=== PATIENT | male | born 1985 | race Caucasian/White ===

== ENCOUNTER 2022-06-17 17:44 | Emergency (ER) | payer OTHER ==
--- OUTSIDE RECORDS SUMMARY | 2022-06-17 17:58 | EXTERNAL MEDICAL SUMMARY RPT | Continuity of Care Document ---
:1985 Author Organization [facility] Address [address] [place] [address] Phone Allergies and Intolerances date description facility type (no date) [facility] (unknown) Encounters No information. Functional Status No information. Immunizations No information. Medications No information. Problems No information. Procedures No information. Results/Labs test date author facility value unit interpret ation Result panel 1 (unknown) (no date) (unknown) (unknown) (no value) (units (un known) unknown) (unknown) (no date) (unknown) (unknown) [id number] (units (unkn own) unknown) (unknown) (no date) (unknown) (unknown) 05/02/22 (units (unkn own) unknown) (unknown) (no date) (unknown) (unknown) [address] (units (unk nown) [address] unknown) (unknown) (no date) (unknown) (unknown) Accession (units (unk nown) Number: unknown) [id number] (unknown) (no date) (unknown) (unknown) Age/Sex: 36 / (units (unknown) M Date of unknown) Service: (unknown) (no date) (unknown) (unknown) [place] [address] unknown) (unknown) (no date) (unknown) (unknown) Approved by: (units ( unknown) Shayne unknownShahnaz Membreno M.D. on 05/02/2022 at 21:00 (unknown) (no date) (unknown) (unknown) Bones: (units (unkn own) Comminuted unknown) distal radius fracture with articular surface involvement (unknown) (no date) (unknown) (unknown) COMPARISON: (units (u nknown) None. unknown) (unknown) (no date) (unknown) (unknown) : (units (unkn own) 1985 unknown) Acct:[id number] (unknown) (no date) (unknown) (unknown) Dictated by: (units ( unknown) Shayne unknown) Niurka Membreno on 05/02/2022 at 20:58 (unknown) (no date) (unknown) (unknown) FINDINGS: (units (unk nown) unknown) (unknown) (no date) (unknown) (unknown) IMPRESSION: (units (u nknown) Distal radius unknown) fracture in a sugar-tong splint with dorsal (unknown) (no date) (unknown) (unknown) INDICATIONS: (units ( unknown) radial/ulnar unknown) fractures, daughter pulled on hand (unknown) (no date) (unknown) (unknown) [facility] (unknown) (no date) (unknown) (unknown) Loc: ED (units (unkn own) unknown) (unknown) (no date) (unknown) (unknown) Ordering (units (unkn own) Provider: unknown) Ray Loo D.O. (unknown) (no date) (unknown) (unknown) PROCEDURE: XR (units (unknown) WRIST LT MIN 3V unknown) (unknown) (no date) (unknown) (unknown) Patient: (units (unkn own) Mihir Flores unknown) MR#: [id number] (unknown) (no date) (unknown) (unknown) Procedure: XR (units (unknown) wrist LT min 3V unknown) (unknown) (no date) (unknown) (unknown) Signed (units (unkn own) unknown) (unknown) (no date) (unknown) (unknown) Soft tissues: (units (unknown) No suspicious unknown) soft tissue calcifications. (unknown) (no date) (unknown) (unknown) TECHNIQUE: 4. (units (unknown) views of the unknown) wrist were acquired. (unknown) (no date) (unknown) (unknown) XRay Report (units (u nknown) unknown) (unknown) (no date) (unknown) (unknown) and dorsal (units (un known) unknown) (unknown) (no date) (unknown) (unknown) angulation (units (un known) unknown) (unknown) (no date) (unknown) (unknown) angulation. (units (u nknown) unknown) Social History No information. Vital Signs No information.
[2022-06-17 18:09] VITALS: BP 129/92
--- NOTE | 2022-06-17 19:11 | XRAY Report ---
PROCEDURE: Wrist 4 View LT INDICATIONS: Trauma TECHNIQUE: 4 views of the wrist were acquired. COMPARISON: Left wrist radiographs 04/17/2022. FINDINGS: Bones: Casting material obscures fine bony detail. Distal radius fracture with sclerosis. No dislocat ions. Alignment is similar. No suspicious bony lesions. Scaphoid view: Intact. Soft tissues: No suspicious soft tissue calcifications. IMPRESSION: The distal radius fracture demonstrates similar alignment. There is incomplete osseous union. Reviewed by: Al Driscoll MD on 06/17/2022 7:10 PM PDT Approved by: Al Driscoll MD on 06/17/2022 7:10 PM PDT Station ID: [id number]
== END 2022-06-17 18:44 | disposition left against medical advice (07) ==
LOC: ED 17:44
DX: Z53.21 Procedure and treatment not carried out due to patient leaving prior to being seen by health care provider (principal)

== ENCOUNTER 2023-07-18 18:30 | Emergency (ER) | payer OTHER ==
[2023-07-18 18:47] VITALS: BP 125/68; O2SAT 94
--- NOTE | 2023-07-18 19:32 | ED Physician Documentation ---
PD HPI URI - Stated complaint Stated Complaint: EAR PX/CONGESTION - Chief complaint Chief Complaint: Heent - History obtained from History obtained from: Patient - Additional information Additional information: 38-year-old male presents with several days of cough, nasal congestion, ear fullness and mild ear pain, scratchy sore throat, he feels a little bit dizzy. He has not had a fever to his knowledge. Has not taken any medication including Tylenol ibuprofen or gkik-hbp-ygoxzrb cough cold medications. He has not had any respiratory distress, no chest pain, no GI or symptoms. He has a number of young children at home some of whom have had colds recently and he is also concerned about making his other children sick. PD PAST MEDICAL HISTORY - Past Medical History Past Medical History: No - Past Surgical History Past Surgical History: No - Present Medications Home Medications: Ambulatory Orders Medication Instructions Recorded Confirmed predniSONE [Deltasone] 40 mg PO DAILY 5 Days #10 tablet 07/18/23 - Allergies Allergies/Adverse Reactions: Allergies Allergy/AdvReac Type Severity Reaction Status Date / Time Penicillins Allergy Anaphylaxis Verified 07/18/23 18:37 - Social History Does the pt smoke?: No Smoking Status: Never smoker Does the pt drink ETOH?: Yes Does the pt have substance abuse?: No - Immunizations Immunizations are current?: Yes - POLST Patient has POLST: No PD ED PE NORMAL - Vitals Vital signs reviewed: Yes - General General: Alert and oriented X 3, No acute distress, Well developed/nourished - HEENT HEENT: Atraumatic, Ears normal, Moist mucous membranes, Pharynx benign, Dentition benign - Neck Neck: Supple, no meningeal sign, No adenopathy - Cardiac Cardiac: RRR, No murmur - Respiratory Respiratory: No respiratory distress, Clear bilaterally - Abdomen Abdomen: Normal bowel sounds, Soft, Non tender, Non distended - Derm Derm: Normal color, Warm and dry, No rash Results - Vitals Vitals: Vital Signs - 24 hr 07/18/23 18:37 Temperature 37.2 C Heart Rate 88 Respiratory 16 Rate Blood Pressure 125/68 O2 Saturation 94 Oxygen O2 Source Room air - Labs Labs: Laboratory Tests 07/18/23 19:35 Group A Strep Rapid Negative PD Medical Decision Making - ED course Complexity details: reviewed results, re-evaluated patient, considered differential, d/w patient ED course: This is a 38-year-old male who presents with nasal congestion scratchy throat, dizziness, ear fullness. He is very well-appearing on physical exam, and there are no acute physical exam findings, he is nontoxic and vitals are stable. Requested strep test which was negative, and we did a viral panel which is pending. Patient is adamant that he needs steroids stating that vcci-ida-cldxhfp cold medication or decongestants will not do anything, though he has not tried any Tylenol ibuprofen or decongestants. He then states that he was around his ygbqjd-dm-nee recently who had similar symptoms, then "lost 30% of his hearing and developed a cochlear infection and they do not know why." And he is concerned that that will happen to him. His vgvibt-zy-ohj received steroids and he would like to have steroids for this issue. I discussed with patient that steroids typically are not the first-line treatment for viral URI symptoms such as his, and I suspect that his father may have had a mastoiditis but in any case, after extensive discussion of the risk versus benefits of this, I have given him 40 mg of prednisone daily for the next 5 days though patient was cautioned extensively on the potential risks of this medication. I encouraged supportive measures for likely viral illness but if symptoms do not improve or worsen, return precautions reviewed. Departure - Departure Disposition: 01 Home, Self Care Clinical Impression: Upper respiratory infection, viral Condition: Good Instructions: ED Viral Syndrome Prescriptions: predniSONE [Deltasone] 40 mg PO DAILY 5 Days #10 tablet Comments: The viral panel is still pending. Please check your online chart for results or call for results. Treatment for a viral upper respiratory infection is supportive including Tylenol or ibuprofen as needed, hyzg-egd-pmtdvtz decongestions, plenty of rest, oral fluids. You are likely to be more fatigued than normal and will need additional sleep. Symptoms do resolve on their own usually after about 7 to 10 days. If you have worsening symptoms during this time, please see your primary doctor or return to the ER. Forms: PCP List
[2023-07-18 20:16] LABS: RAPID STREP SCREEN Negative (Negative)
[2023-07-18 21:05] LABS: B. PARAPERTUSSIS- RESP PCR PAN NOT DETECTED; B. PERTUSSIS- RESP PCR PANEL NOT DETECTED; C. PNEUMONIAE- RESP PCR PANEL NOT DETECTED; CORONAVIRUS 229E-RESP PCR NOT DETECTED; CORONAVIRUS HKU1-RESP PCR NOT DETECTED; CORONAVIRUS NL63-RESP PCR NOT DETECTED; CORONAVIRUS OC43-RESP PCR NOT DETECTED; HUMAN METAPNEUMOVIRUS NOT DETECTED; INFLUENZA A- RESP PCR PANEL NOT DETECTED; INFLUENZA B - RESP PCR PANEL NOT DETECTED; M. PNEUMONIAE- RESP PCR PANEL NOT DETECTED; PARAINFLUENZA VIRUS 1 NOT DETECTED; PARAINFLUENZA VIRUS 2 NOT DETECTED; PARAINFLUENZA VIRUS 3 NOT DETECTED; PARAINFLUENZA VIRUS 4 NOT DETECTED; RHINOVIRUS/ENTEROVIRUS DETECTED; RSV- RESP PCR PANEL NOT DETECTED; SARS-CoV-2 -RESP PCR PANEL NOT DETECTED
== END 2023-07-18 20:47 | disposition home or self-care (01) ==
LOC: ED 18:30
DX: J06.9 Acute upper respiratory infection, unspecified (principal); Z20.822 Contact with and (suspected) exposure to COVID-19
CPT/HCPCS: 87070; 87430; 87633; 99283

== ENCOUNTER 2023-08-13 12:15 | Emergency (ER) | payer OTHER ==
--- NOTE | 2023-08-13 12:32 | ED Physician Documentation ---
History of Present Illness - Stated complaint Stated Complaint: NECK/EAR/PX - Chief complaint Chief Complaint: Heent - History obtained from History obtained from: Patient - Additonal information Additional information: Otherwise healthy 38-year-old gentleman has been sick for a month. He was seen by my partner in mid July and noted to be enterovirus/rhinovirus positive and started on steroids which helpful for a time. Now has persistent left earache, throat pain, and sinus pain. No fevers. PD PAST MEDICAL HISTORY - Past Medical History Past Medical History: No - Past Surgical History Past Surgical History: No - Present Medications Home Medications: Ambulatory Orders Medication Instructions Recorded Confirmed Doxycycline [Vibramycin] 100 mg PO BID #14 tablet 08/13/23 Guaifenesin/Pseudoephedrne HCl 1 each PO BID PRN #20 tab 08/13/23 [Mucinex D ER 600-60 mg Tablet] predniSONE [Deltasone] 40 mg PO DAILY 5 Days #10 tablet 08/13/23 - Allergies Allergies/Adverse Reactions: Allergies Allergy/AdvReac Type Severity Reaction Status Date / Time Penicillins Allergy Anaphylaxis Verified 08/13/23 12:23 - Social History Does the pt smoke?: No Smoking Status: Never smoker Does the pt drink ETOH?: Yes Does the pt have substance abuse?: No - Immunizations Immunizations are current?: Yes - POLST Patient has POLST: No PD ED PE NORMAL - Vitals Vital signs reviewed: Yes - General General: Alert and oriented X 3, No acute distress - HEENT HEENT: Other (Tender over the left maxillary sinus. Mild left otitis. Oropharynx normal. Supple neck.) - Neck Neck: Supple, no meningeal sign, No bony TTP - Neuro Neuro: Alert and oriented X 3 Results - Vitals Vitals: Vital Signs - 24 hr 08/13/23 12:19 Temperature 36.9 C Heart Rate 72 Respiratory 16 Rate Blood Pressure 119/69 O2 Saturation 97 Oxygen O2 Source Room air PD Medical Decision Making - ED course ED course: Note for MIPS review doxycycline was chosen noting penicillin allergy and therefore not amoxicillin or Augmentin. Departure - Departure Disposition: 01 Home, Self Care Clinical Impression: Sinusitis Qualifiers: Sinusitis location: maxillary Chronicity: acute Recurrence: non-recurrent Qualified Code(s): J01.00 - Acute maxillary sinusitis, unspecified Condition: Good Record reviewed to determine appropriate education?: Yes Instructions: ED Sinusitis Abx Tx Prescriptions: predniSONE [Deltasone] 40 mg PO DAILY 5 Days #10 tablet Guaifenesin/Pseudoephedrne HCl [Mucinex D ER 600-60 mg Tablet] 1 each PO BID PRN #20 tab PRN Reason: congestion Doxycycline [Vibramycin] 100 mg PO BID #14 tablet Comments: I sent your prescriptions [facility] to [facility] in [place]. Drink plenty of fluids. Follow-up with your doctor in a week if not better, return for new or worsening symptoms. Forms: PCP List
[2023-08-13 12:39] VITALS: BP 120/95; O2SAT 98
== END 2023-08-13 12:55 | disposition home or self-care (01) ==
LOC: ED 12:15
DX: J01.00 Acute maxillary sinusitis, unspecified (principal); Z88.0 Allergy status to penicillin
CPT/HCPCS: 99283

== ENCOUNTER 2023-08-20 13:47 | Emergency (ER) | payer OTHER ==
[2023-08-20 15:32] LABS: RAPID STREP SCREEN Negative (Negative)
--- NOTE | 2023-08-20 15:57 | XRAY Report ---
PROCEDURE: Ankle 3 View RT INDICATIONS: pain TECHNIQUE: 3 views of the ankle were acquired. COMPARISON: None. FINDINGS: Bones: No acute fractures or dislocations. Chronic appearing ossification noted over the distal asp ect of the right fibula. Ankle mortise is normally aligned. No suspicious bony lesions. Soft tissues: No tibiotalar joint effusion. Achilles tendon appears normal. Moderate lateral malle olar soft tissue swelling. IMPRESSION: Moderate lateral malleolar soft tissue swelling without underlying acute fracture or dislocation. Chronic appearing ossification over the distal right fibula likely sequela of remote injury. If there is persistent clinical concern for a radiographically occult fracture, recommend immobilizat ion and repeat imaging in 10 to 14 days. Reviewed by: Darek Ramirez MD on 08/20/2023 3:56 PM PST Approved by: Darek Ramirez MD on 08/20/2023 3:56 PM [facility] Station ID: [id number]
--- NOTE | 2023-08-20 15:58 | XRAY Report ---
PROCEDURE: Chest 1 View X-Ray INDICATIONS: cough TECHNIQUE: One view of the chest was acquired. COMPARISON: None. FINDINGS: Surgical changes and devices: Postsurgical changes of the right shoulder.. Lungs and pleura: No pleural effusions or pneumothorax. Lungs are clear. Mediastinum: Mediastinal contours appear normal. Heart size is normal. Bones and chest wall: No suspicious bony lesions. Overlying soft tissues appear unremarkable. IMPRESSION: No acute cardiopulmonary process. No focal consolidation. Reviewed by: Darek Ramirez MD on 08/20/2023 3:57 PM PST Approved by: Darek Ramirez MD on 08/20/2023 3:57 PM PST Station ID: [id number]
[2023-08-20 16:10] LABS: B. PARAPERTUSSIS- RESP PCR PAN NOT DETECTED; B. PERTUSSIS- RESP PCR PANEL NOT DETECTED; C. PNEUMONIAE- RESP PCR PANEL NOT DETECTED; CORONAVIRUS 229E-RESP PCR NOT DETECTED; CORONAVIRUS HKU1-RESP PCR NOT DETECTED; CORONAVIRUS NL63-RESP PCR NOT DETECTED; CORONAVIRUS OC43-RESP PCR NOT DETECTED; HUMAN METAPNEUMOVIRUS NOT DETECTED; INFLUENZA A- RESP PCR PANEL NOT DETECTED; INFLUENZA B - RESP PCR PANEL NOT DETECTED; M. PNEUMONIAE- RESP PCR PANEL NOT DETECTED; PARAINFLUENZA VIRUS 1 NOT DETECTED; PARAINFLUENZA VIRUS 2 NOT DETECTED; PARAINFLUENZA VIRUS 3 NOT DETECTED; PARAINFLUENZA VIRUS 4 NOT DETECTED; RHINOVIRUS/ENTEROVIRUS NOT DETECTED; RSV- RESP PCR PANEL NOT DETECTED; SARS-CoV-2 -RESP PCR PANEL NOT DETECTED
--- NOTE | 2023-08-20 16:17 | ED Physician Documentation ---
PD HPI URI - Stated complaint Stated Complaint: ARMIN CONTRERAS - Chief complaint Chief Complaint: General - History obtained from History obtained from: Patient - Additional information Additional information: Patient is a 38-year-old male presenting for evaluation of URI symptoms for the past 3 days with cough, congestion, plugged up ears. He was recently seen here and diagnosed with ear infections and given doxycycline as well as prednisone. He only took prednisone for a few days Because it was making him to report to complete the course of antibiotics. His doctor here with similar symptoms. Patient reports still feeling some congestion. He also is here for evaluation of right ankle pain after stepping in a pothole on the . He has been able to ambulate but reports mild discomfort and states that this is the actual reason he came to the emergency department today. Denies fever. No head injury. Review of Systems Constitutional: denies: Fever Ears: reports: Ear pain Nose: reports: Congestion Respiratory: reports: Cough GI: denies: Vomiting Musculoskeletal: reports: Extremity swelling PD PAST MEDICAL HISTORY - Past Medical History Past Medical History: No Cardiovascular: None Respiratory: None Neuro: None Endocrine/Autoimmune: None GI: None : None HEENT: None Psych: None Musculoskeletal: None Derm: None - Past Surgical History Past Surgical History: No - Present Medications Home Medications: Ambulatory Orders Medication Instructions Recorded Confirmed Doxycycline [Vibramycin] 100 mg PO BID #14 tablet 08/13/23 Guaifenesin/Pseudoephedrne HCl 1 each PO BID PRN #20 tab 08/13/23 [Mucinex D ER 600-60 mg Tablet] predniSONE [Deltasone] 40 mg PO DAILY 5 Days #10 tablet 08/13/23 Fluticasone [Flonase] 1 sprays NAZIA BID PRN #16 gm 08/20/23 - Allergies Allergies/Adverse Reactions: Allergies Allergy/AdvReac Type Severity Reaction Status Date / Time Penicillins Allergy Anaphylaxis Verified 08/20/23 13:56 - Social History Does the pt smoke?: No Smoking Status: Never smoker Does the pt drink ETOH?: Yes Does the pt have substance abuse?: No - Immunizations Immunizations are current?: Yes - POLST Patient has POLST: No PD ED PE NORMAL - General General: Alert and oriented X 3, No acute distress, Well developed/nourished - HEENT HEENT: Atraumatic, Ears normal (B/L serous otitis), Moist mucous membranes, Pharynx benign - Neck Neck: Supple, no meningeal sign - Cardiac Cardiac: RRR - Respiratory Respiratory: No respiratory distress, Clear bilaterally - Abdomen Abdomen: Soft, Non tender, Non distended - Derm Derm: Warm and dry - Extremities Extremities: No deformity, Other (Mild tenderness to right lateral malleoli; Distal pulses intact, compartments of extremity are soft) - Neuro Neuro: Normal speech Results - Vitals Vitals: Vital Signs - 24 hr 08/20/23 08/20/23 13:56 16:47 Temperature 36.7 C Heart Rate 74 64 Respiratory 18 16 Rate Blood Pressure 119/66 112/74 O2 Saturation 97 99 Oxygen O2 Source Room air - Labs Labs: Laboratory Tests 08/20/23 08/20/23 15:10 15:10 Nasal Adenovirus (PCR) NOT DETECTED Nasal B. parapertussis DNA (PCR) NOT DETECTED Nasal Coronavir 229E PCR NOT DETECTED Nasal Coronavir HKU1 PCR NOT DETECTED Nasal Coronavir NL63 PCR NOT DETECTED Nasal Coronavir OC43 PCR NOT DETECTED Nasal Enterovir/Rhinovir PCR NOT DETECTED Nasal Influenza B PCR NOT DETECTED Nasal Influenza A PCR NOT DETECTED Nasal Parainfluen 1 PCR NOT DETECTED Nasal Parainfluen 2 PCR NOT DETECTED Nasal Parainfluen 3 PCR NOT DETECTED Nasal Parainfluen 4 PCR NOT DETECTED Nasal RSV (PCR) NOT DETECTED Nasal B.pertussis DNA PCR NOT DETECTED Nasal C.pneumoniae (PCR) NOT DETECTED Nazia Human Metapneumo PCR NOT DETECTED Nasal M.pneumoniae (PCR) NOT DETECTED Nasal SARS-CoV-2 (PCR) NOT DETECTED Group A Strep Rapid Negative PD Medical Decision Making - ED course Complexity details: reviewed results, re-evaluated patient, d/w patient ED course: Patient is a 38-year-old male presenting for evaluation of URI symptoms that been intermittent for the past few weeks along with right ankle pain after twisting it in a pothole. X-ray of the ankle was obtained which I reviewed and I see no fracture or dislocation. Declines crutches but is agreeable to an Aircast. He is ambulatory here.In regards to his URI symptoms, patient is clinically well-appearing with no signs of labored breathing and stable vital signs. Chest x-ray which reviewed is negative for consolidation or pneumonia. Strep test is negative.Patient does have signs of serous otitis media bilaterally.Respiratory swab is negative. At this time I do not see any obvious indication for antibiotic treatment and patient was just recently on a course of doxycycline. His daughter is also here with similar symptoms.Therefore I suspect that his symptoms are likely viral in nature and have discussed c ontinued supportive care. Patient counseled on concerning symptoms to return for. Departure - Departure Disposition: 01 Home, Self Care Clinical Impression: Upper respiratory infection, Right ankle sprain, Bilateral serous otitis media Condition: Stable Instructions: ED Sprain Ankle W X Ray, ED Otitis Media Serous Adult, ED URI Viral Prescriptions: Fluticasone [Flonase] 1 sprays NAZIA BID PRN #16 gm PRN Reason: Nasal Congestion Comments: Your chest x-ray does not show pneumonia. Your ankle x-ray Does not show a fracture or dislocation. Your strep test is negative and your respiratory swab is negative for the tested viruses including COVID, RSV and influenza. However at this time I do not see an indication for another course of antibiotics. I would recommend Flonase and an antihistamine to help with the nasal congestion and see if this helps with the fluid behind your ears. I sent prescriptions to [facility] in [place]. Please have close follow-up with your primary care doctor. Return to the ER with worsening symptoms. We have also given you an Aircast. If your symptoms or not improving regards to your ankle pain that I would recommend follow-up with your primary doctor. Forms: PCP List Discharge Date/Time: 08/20/23 16:48
[2023-08-20 16:50] VITALS: BP 112/74; O2SAT 99
== END 2023-08-20 16:48 | disposition home or self-care (01) ==
LOC: ED 13:47
DX: J06.9 Acute upper respiratory infection, unspecified (principal); S93.401A Sprain of unspecified ligament of right ankle, initial encounter; X58.XXXA Exposure to other specified factors, initial encounter; H65.93 Unspecified nonsuppurative otitis media, bilateral; Z11.52 Encounter for screening for COVID-19
CPT/HCPCS: 87070; 87430; 87633; 99284

== ENCOUNTER 2023-12-30 10:00 | Outpatient (CLI) | payer OTHER ==
--- NOTE | 2023-12-30 14:13 | XRAY Report ---
PROCEDURE: Chest 2V INDICATIONS: ACUTE COUGH TECHNIQUE: 2 views of the chest were acquired. COMPARISON: Chest x-ray, 08/20/2023. FINDINGS: Surgical changes and devices: None. Lungs and pleura: No pleural effusions or pneumothorax. Lungs are clear. Mediastinum: Mediastinal contours appear normal. Heart size is normal. Bones and chest wall: 2 surgical screws are seen in the inferior right glenoid. No suspicious bony l esions. Overlying soft tissues appear unremarkable. IMPRESSION: No acute cardiopulmonary process. Reviewed by: Tomas Jefferson MD on 12/30/2023 2:11 PM PDT Approved by: Tomas Jefferson MD on 12/30/2023 2:11 PM PDT Station ID: [id number]
== END 2023-12-30 10:15 | disposition home or self-care (01) ==
LOC: DI.N 10:00
PROVIDERS: ATTEND Physician Assistant Medical
DX: R05.1 Acute cough (principal)